=== PATIENT | male | born 1990 | race African-American/Black ===

== ENCOUNTER 2017-08-29 22:08 | Emergency (ER) | payer MEDICAID, OTHER ==
[~2017-08-29] VITALS: Ht 180.3 cm; Wt 75.0 kg
[2017-08-30] MEDS ORDERED: KETOROLAC 60MG/2ML VIAL IM ONE (05:00)
[2017-08-30 05:15] VITALS: BP 142/78
== END 2017-08-30 05:15 | disposition home or self-care (01) ==
LOC: ER 22:08
DX: K04.7 Periapical abscess without sinus (principal)
CPT/HCPCS: 99283; J1885